=== PATIENT | female | born 1955 | race Caucasian/White ===

== ENCOUNTER 2019-06-08 12:33 | Emergency (ER) | payer BC, MEDICARE, OTHER, SELFPAY ==
[~2019-06-08] VITALS: Ht 170.2 cm; Wt 75.6 kg
[2019-06-08 12:38] VITALS: BP 176/95
--- NOTE | 2019-06-08 12:52 | NUR ---
PT C/O RIGHT CHEECK SWELLING AND PAINFUL TO TOUCH, WHICH STARTED ON SUNDAY. PT CONNECTED TO MONITORING. CALL LIGHT IN REACH. AWAITING ORDERS AT THIS TIME.
[2019-06-08] MEDS ORDERED: DEXAMETHASONE 4 MG TABLET ONE (13:19)
--- NOTE | 2019-06-08 13:22 | NUR ---
MEDS ADMIS PER JUN.
[2019-06-08] MEDS ORDERED: IBUPROFEN 200 MG TABLET ONE (13:25)
[2019-06-08] MEDS ORDERED: DEXAMETHASONE 4 MG TABLET PO ONE (13:30)
[2019-06-08] MEDS ORDERED: IBUPROFEN 200 MG TABLET PO ONE (13:30)
--- NOTE | 2019-06-08 14:21 | NUR ---
MEDS ADMIN PER MAR
== END 2019-06-08 14:26 | disposition home or self-care (01) ==
LOC: ED 14:00
DX: K04.7 Periapical abscess without sinus (principal); R00.0 Tachycardia, unspecified
CPT/HCPCS: 99283